=== PATIENT | female | born 1955 | race Caucasian/White ===

== ENCOUNTER → 2018-05-05 | Outpatient (CLI) | payer OTHER | LOC: M.RAD 08:42 | DX: Z12.31 Encounter for screening mammogram for malignant neoplasm of breast (principal) ==

== ENCOUNTER → 2018-06-15 | Outpatient (CLI) | payer OTHER | LOC: M.RAD 08:39 | DX: Z13.820 Encounter for screening for osteoporosis (principal); E28.39 Other primary ovarian failure; Z78.0 Asymptomatic menopausal state ==

== ENCOUNTER → 2018-07-24 | Outpatient (CLI) | payer OTHER | LOC: M.LAB 01:04 | DX: Z01.812 Encounter for preprocedural laboratory examination (principal) ==

== ENCOUNTER → 2018-10-03 | Outpatient (CLI) | payer OTHER | LOC: M.RAD 15:24 | DX: R06.02 Shortness of breath (principal) ==

== ENCOUNTER 2018-12-26 18:33 | Emergency (ER) | payer OTHER ==
[~2018-12-26] VITALS: Ht 154.9 cm; Wt 50.8 kg
[2018-12-26] MEDS ORDERED: HYDROCHLOROTH12.5 M1 PO (18:44)
[2018-12-26] MEDS ORDERED: SYNTHROID75 MCG PO (18:44)
[2018-12-26] MEDS ORDERED: MICARDIS40 MG PO (18:45)
[2018-12-26] MEDS ORDERED: AUGMENTIN 875-1 EACH PO (19:45)
[2018-12-26 20:00] VITALS: BP 170/87
== END 2018-12-26 20:01 | disposition home or self-care (01) ==
LOC: M.ERS 18:33
DX: S61.212A Laceration without foreign body of right middle finger without damage to nail, initial encounter (principal); S61.213A Laceration without foreign body of left middle finger without damage to nail, initial encounter; I10 Essential (primary) hypertension; E03.9 Hypothyroidism, unspecified; W54.0XXA Bitten by dog, initial encounter; Y92.89 Other specified places as the place of occurrence of the external cause; Y93.89 Activity, other specified; Y99.8 Other external cause status

== ENCOUNTER → 2019-05-30 | Outpatient (CLI) | payer OTHER ==
[~2019-05-30] MED LIST: AUGMENTIN 875-1 EACH PO; HYDROCHLOROTH12.5 M1 PO; MICARDIS40 MG PO; SYNTHROID75 MCG PO
== END ==
LOC: M.RAD 05-28 10:10
DX: Z12.31 Encounter for screening mammogram for malignant neoplasm of breast (principal)